=== PATIENT | male | born 1970 | race American Indian/Alaskan Native ===

== ENCOUNTER 2020-01-10 07:51 | Emergency (ER) | payer SELFPAY ==
[~2020-01-10] VITALS: Ht 177.8 cm; Wt 99.8 kg
[2020-01-10] MEDS ORDERED: HYDR1TAB94 PO (09:32)
[2020-01-10] MEDS ORDERED: IBU800 MG PO (09:32)
== END 2020-01-10 10:00 | disposition home or self-care (01) ==
LOC: ER 07:51
DX: S63.501A Unspecified sprain of right wrist, initial encounter (principal); S93.401A Sprain of unspecified ligament of right ankle, initial encounter; F17.200 Nicotine dependence, unspecified, uncomplicated; Z87.81 Personal history of (healed) traumatic fracture; W19.XXXA Unspecified fall, initial encounter
CPT/HCPCS: 73110; 73590; 73610; 73630; 99283-25